=== PATIENT | male | born 1945 | race Caucasian/White ===

== ENCOUNTER 2017-04-27 12:54 | Day surgery (SDC) | payer MEDICARE, BC ==
--- NOTE | ~2017-04-27 | OP ---
Record Of Operation [place] [address] [facility] [place]. 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 This is a nodular type with a thickness of 1.02 mm, Aden level 4, with a mitotic rate of 1 mitosis per square millimeter. No ulceration. Status post biopsy. A T2a N0 M0. OPERATIONS: 1. Wide radical resection with malignant melanoma, left mid back. 2. Repair of soft tissue defect in layers. 3. Intraoperative lymphatic mapping injection of blue dye, Lymphazurin and sentinel node biopsies of the left axilla. 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 This is a nodular type with a thickness of 1.02 mm, Aden level 4, with a mitotic rate of 1 mitosis per square millimeter. No ulceration. Status post biopsy. A T2a N0 M0. SURGEON: Aria Silveira M.D. RESIDENT CHIEF SURGEON: Radha Callejas MD ANESTHESIA: General. COMPLICATIONS: None. ESTIMATED BLOOD LOSS: Minimal. COUNTS: Correct. POSITION: Right lateral decubitus. Informed consent obtained. Indications, potential risks, complications, limitations, and alternatives were thoroughly discussed. Education: The patient was educated on the management of melanoma, all aspects, surgical therapy, sentinel node biopsy. Preoperative evaluation included 1 CT scan of the chest, abdomen, and pelvis. This shows one bilateral pulmonary plaques, possibly related to asbestos exposure, pulmonary evaluation in progress. Pulmonary nodules, pulmonary evaluation in progress. Probably benign, but needs to follow up. Enlargement of depressed prostate gland, we will request urology evaluation. Cholelithiasis, we will requested General Surgery evaluation. Calcifications of the abdominal aorta, thoracic aorta, and coronary arteries. Evaluated by Cardiology. He was cleared by Cardiology. No evidence of metastatic disease. Record Of Operation [place] [address] [facility] [place]. [address] NAME: HAZEL PABLO : 49 STATUS : [facility] PAT#: [id number] AGE: 71 ADM/REG DATE : 04/27/17 MR#: [id number] REPORT SERV DATE: 04/27/17 DICTATED BY: ARIA SILVEIRA DATE: 04/27/17 REPORT STATUS : Draft TRANSCRIBED BY: ANNA DATE: 04/27/17 Preoperative evaluation included lymphoscintigraphy. He was cleared by Cardiology for surgery. Seen by Dr. Hidalgo with [facility]. SUMMARY: He was brought to the operating room, placed supine, patient identified, procedure confirmed, time-out protocol enforced, prophylactic IV antibiotics given. Placed in the right lateral decubitus position. The left flank and axilla were exposed, prepped and draped in a sterile fashion. The area of the melanoma injected with 1 mL of Lymphazurin Isosulfan blue intradermally. We designed an oblique elliptical incision. We measured 2 cm margins from the biopsy site in all directions. The area to be resected measures approximately 12.5 x 5 cm. The incision was then carried down through the full thickness of the underlying subcutaneous tissue to include the superficial aponeurosis. Hemostasis was achieved by means of selective electrocoagulation using low voltage. There were no other significant vascular or neurological structures in the area. The specimen was oriented labeled and sent to Pathology. The soft tissues were approximated in layers with interrupted sutures of 2-0 Vicryl for the deeper layers and the deeper dermis, 3-0 Vicryl for the more superficial area of the dermis and interrupted sutures of 3-0 Prolene for the skin. The field was irrigated with 0.25% Marcaine with epinephrine for postoperative pain control. We also used Ivy for hemostasis. We covered the area with sterile dressings, Telfa, and Tegaderm. The axillary area was then interrogated with the gamma probe, Neoprobe. Radioactivity detected incision made at level 1, carried down into the subcutaneous tissues of the axilla. Retractors were placed. The axilla was then explored in a meticulous diligent fashion using minimal selective pinpoint vocational electrocoagulation using ligatures of 3-0 Vicryl for hemostasis. Multiple nodes were then detected in a sequential fashion. We ended up identifying a total of 6 different sentinel nodes. Couple of the nodes have lymphatic blue channels leading into this, but there were no heavily blue stained lymph nodes. However, all the lymph nodes had radioactivity. The lymph nodes were individually harvested intact and sent to Pathology for analysis. Hemostasis was secured. The area irrigated with normal saline solution, then Ivy and finally 0.25% Marcaine for postoperative pain control. The background count at the end was minimal. There was no other evidence of pathological adenopathy by inspection or palpation. There was no other evidence of blue discoloration in the field. Of note, all the blue color subcutaneous tissues in the area of the melanoma was fully removed with the specimen. Once we have achieved hemostasis, the dermis was approximated with interrupted sutures of 3- 0 Vicryl. The skin with 3-0 Vicryl subcuticular and interrupted as well. Sterile dressings were applied. We used Mepilex and then Tegaderm. He has tolerated the procedure well. No complications. At the end, he was extubated and exit time-out protocol was enforced. No complications. Counts correct. No unexpected events. He is on an outpatient basis. Prescriptions for Percocet and Zofran were given to his . I informed her of the findings in detail, await final path report to make long-term therapeutic recommendations. Contact information including my cell number was provided to them. Record Of Operation [address] [address] NAME: HAZEL PABLO : 49 STATUS : [facility] PAT#: [id number] AGE: 71 ADM/REG DATE : 04/27/17 MR#: [id number] REPORT SERV DATE: 04/27/17 DICTATED BY: ARIA SILVEIRA DATE: 04/27/17 REPORT STATUS : Draft TRANSCRIBED BY: ANNA DATE: 04/27/17 FRANSISCA/ANNA Aria Silveira M.D. / [id number] CC: Marilin Mendez M.D. Samuel Banks, M.D. John Carter Hemphill, MD Philip Andrews, NP
[~2017-04-27 12:54] MED LIST: ALEVE220 MG PO; ARTHROTEC 50 PO; MULTIVIT/MIN PO; [UNRECOGNIZED DRUG - OTHER]
[2017-04-27 14:54] LABS: HEMATOCRIT 44.4 % (40.0-51.0); HEMOGLOBIN 15.2 g/dL (13.6-17.8)
== END 2017-04-27 20:28 | disposition home or self-care (01) ==
LOC: SDC 12:54
PROVIDERS: Surgery
PROC: [UNRECOGNIZED PROCEDURE] (2017-04-27)
PROC: 0JB70ZZ Excision of Back Subcutaneous Tissue and Fascia, Open Approach (ICD-10-PCS; principal; 2017-04-27 15:15)
DX: R22.2 Localized swelling, mass and lump, trunk (principal); G47.33 Obstructive sleep apnea (adult) (pediatric); M19.90 Unspecified osteoarthritis, unspecified site; Z98.890 Other specified postprocedural states; Z87.891 Personal history of nicotine dependence; Z79.899 Other long term (current) drug therapy
CPT/HCPCS: 78195; 85014; 85018; 88305; 88307; 88341; 88342; A9270-GY; A9541; J0690; J1170; J2250; J2405; J2710; J3010; Q9968